=== PATIENT | female | born 1995 | race Caucasian/White ===

== ENCOUNTER 2016-08-07 17:08 | Emergency (ER) | payer OTHER ==
[2016-08-07 18:55] LABS: RED BLOOD COUNT 5.02 M/UL (4.00-5.10); WHITE BLOOD COUNT 9.8 K/UL (4.5-11.0)
[2016-08-07 19:12] LABS: BUN/CREATININE RATIO 17 (0-10)
== END 2016-08-07 21:09 | disposition home or self-care (01) ==
LOC: ER1 17:08
PROVIDERS: Physician Assistant
DX: J06.9 Acute upper respiratory infection, unspecified (principal); R07.9 Chest pain, unspecified; I10 Essential (primary) hypertension; Z79.899 Other long term (current) drug therapy
CPT/HCPCS: 36415; 71020; 80053; 84439; 84443; 84703; 85025; 85379; 99285

== ENCOUNTER 2016-09-12 18:11 | Emergency (ER) | payer OTHER | END 2016-09-12 22:00 | disposition left against medical advice (07) | LOC: ER1 18:11 | DX: Z53.21 Procedure and treatment not carried out due to patient leaving prior to being seen by health care provider (principal) ==

== ENCOUNTER 2016-09-23 14:59 | Emergency (ER) | payer OTHER | END 2016-09-23 15:45 | disposition home or self-care (01) | LOC: ER1 14:59 | DX: T15.11XA Foreign body in conjunctival sac, right eye, initial encounter (principal); I10 Essential (primary) hypertension; Z79.899 Other long term (current) drug therapy; X58.XXXA Exposure to other specified factors, initial encounter | CPT/HCPCS: 65205; 99283 ==

== ENCOUNTER 2016-09-30 14:59 | Emergency (ER) | payer OTHER | END 2016-09-30 16:29 | disposition home or self-care (01) | LOC: ER1 14:59 | DX: N39.0 Urinary tract infection, site not specified (principal); I10 Essential (primary) hypertension; Z79.899 Other long term (current) drug therapy | CPT/HCPCS: 81001; 84703; 99283 ==

== ENCOUNTER 2016-10-27 13:05 | Emergency (ER) | payer OTHER | END 2016-10-27 14:20 | disposition left against medical advice (07) | LOC: ER1 13:05 | DX: Z53.21 Procedure and treatment not carried out due to patient leaving prior to being seen by health care provider (principal) ==

== ENCOUNTER → 2021-12-06 | Outpatient (CLI) | payer OTHER ==
[~2021-12-06] MED LIST: AMOXICILLIN500 MG PO; COLACE 100MG C100 MG PO; IBUPROFEN600 MG PO; LORTAB 5-325 M1 EACH PO; TENORMIN 25 MG25 MG PO; ZANTAC 150 MG150 MG GT
== END ==
LOC: KOH-I 12:55
DX: M25.532 Pain in left wrist (principal); M25.531 Pain in right wrist; M25.541 Pain in joints of right hand; M25.542 Pain in joints of left hand; M25.572 Pain in left ankle and joints of left foot; M25.571 Pain in right ankle and joints of right foot; R76.8 Other specified abnormal immunological findings in serum
CPT/HCPCS: 73100; 73120; 73630